=== PATIENT | female | born 1975 | race Caucasian/White ===

== ENCOUNTER 2017-03-28 22:37 | Emergency (ER) | payer MEDICAID, OTHER ==
[~2017-03-28] VITALS: Ht 160 cm; Wt 52.3 kg
[2017-03-28 22:38] VITALS: BP 135/90
== END 2017-03-28 23:25 | disposition home or self-care (01) ==
LOC: ED 23:00
DX: K02.9 Dental caries, unspecified (principal); F30.9 Manic episode, unspecified
CPT/HCPCS: 99283

== ENCOUNTER 2017-07-24 12:59 | Emergency (ER) | payer MEDICAID ==
[~2017-07-24] VITALS: Ht 157.5 cm; Wt 50.2 kg
[2017-07-24] MEDS ORDERED: LIDOCAINE 4% CREAM EXT ONE (13:49)
[2017-07-24] MEDS ORDERED: LIDOCAINE GEL 2%, 5ML ONE (13:59)
[2017-07-24] MEDS ORDERED: ALBUTEROL/IPRATROPIUM 2.5MG/0.5MG, 3 ML NPPB ONE (14:00)
[2017-07-24] MEDS ORDERED: ALBUTEROL/IPRATROPIUM 2.5MG/0.5MG, 3 ML ONE (14:12)
[2017-07-24] MEDS ORDERED: ACETAMINOPHEN 325 MG TABLET ONE (14:53)
[2017-07-24] MEDS ORDERED: ACETAMINOPHEN 325 MG TABLET PO ONE (15:00)
[2017-07-24 15:13] VITALS: BP 111/75
== END 2017-07-24 15:16 | disposition home or self-care (01) ==
LOC: ED 15:10
DX: J15.9 Unspecified bacterial pneumonia (principal); A60.00 Herpesviral infection of urogenital system, unspecified; F12.10 Cannabis abuse, uncomplicated; F15.10 Other stimulant abuse, uncomplicated; F11.10 Opioid abuse, uncomplicated; F17.200 Nicotine dependence, unspecified, uncomplicated
CPT/HCPCS: 71046; 94640; 99284; J7620